=== PATIENT | female | born 1970 | race Caucasian/White ===

== ENCOUNTER → 2020-10-11 14:34 | Outpatient (CLI) | payer OTHER, SELFPAY ==
--- NOTE | ~2020-10-11 | MMUS_ITS ---
EXAMINATION: MM diagnostic hannah BI w annemarie, US breast BI limited HISTORY: Follow-up for probably benign bilateral breast masses, due six months ago TECHNIQUE: Craniocaudal, mediolateral, and mediolateral oblique 3-D tomosynthesis images of the lila ts were performed and synthetic 2-D images were generated. CAD analysis was submitted and interpreted . High resolution limited bilateral breast ultrasound was performed. COMPARISON: 09/17/2019, 09/01/2019, 09/21/2017, 01/13/2016 BREAST PARENCHYMAL COMPOSITION: There are scattered areas of fibroglandular density. FINDINGS: MAMMOGRAPHIC FINDINGS: Right breast: There are stable masses at the 2:00, 6:00, and 9:00 locations in the breast. There has been no suspicious interval change. No suspicious calcification or architectural distortion are ident ified. Left breast: There is a stable 8 mm mass in the middle third of the lower-outer breast at the 4:00 lo cation. A mammographically detected mass previously seen in the posterior third of the central breast has decreased in size since the comparison examination. ULTRASOUND: Right breast: There is a 6 mm x 3 mm oval, circumscribed, parallel, hypoechoic mass with no posterior features or internal vascularity at the 8:00 location 4 cm from the nipple. Left breast: There is a 6 mm x 3 mm oval, circumscribed, parallel, hypoechoic mass with no posterior features or internal vascularity at the 4:00 location 3 cm from the nipple. A 5 mm x 2 mm mass with s imilar sonographic features is seen at the 4:00 location 6 cm from the nipple. IMPRESSION: 1. Probably benign bilateral breast masses. 2. Recommend 6 month follow-up bilateral diagnostic mammogram and ultrasound. BI-RADS category 3, probably benign findings. Reviewed, dictated and finalized at location A. NSED SALES ASSISTANT IMPRESSION: 1. Probably benign bilateral breast masses. 2. Recommend 6 month follow-up bilateral diagnostic mammogram and ultrasound. BI-RADS category 3, probably benign findings.
== END ==
PROVIDERS: PCP Internal Medicine; Visit Provider Obstetrics & Gynecology
DX: R92.8 Other abnormal and inconclusive findings on diagnostic imaging of breast (principal)
CPT/HCPCS: 76642; 77062; 77066; G0279

== ENCOUNTER → 2021-05-05 14:37 | Outpatient (CLI) | payer OTHER, SELFPAY ==
--- NOTE | ~2021-05-05 | MMUS_ITS ---
EXAMINATION: MM diagnostic hannah BI w annemarie, US breast BI complete HISTORY: Six-month follow-up of probably benign bilateral breast masses TECHNIQUE: Full field and spot 3-D tomosynthesis images of both breasts were performed and synthetic 2-D images were generated. CAD analysis was submitted and interpreted. High resolution bilateral comp lete breast ultrasound was performed. COMPARISON: 10/11/2020 bilateral diagnostic digital mammogram and bilateral Limited breast ultrasound examination BREAST PARENCHYMAL COMPOSITION: There are scattered areas of fibroglandular density. FINDINGS: MAMMOGRAPHIC FINDINGS: No architectural distortion, malignant calcification, skin thickening or retra ction of either breast is evident. Bilateral small circumscribed breast masses are noted, including the following: Right breast: 6 mm circumscribed low-density opacity is noted posteriorly in the upper outer right breast (cranioca udal Tomosynthesis image 34/79; MLO Tomosynthesis image 27/82). 3.5 mm circumscribed opacity in the upper outer right breast (craniocaudal Tomosynthesis image 38/79) Two approximately 4.5 mm circumscribed lobular densities are noted in the upper central right breast (craniocaudal Tomosynthesis images 36 and 47/79; MLO Tomosynthesis image 42/82)). Approximately 5 mm-7 mm circumscribed lobular opacity in the lower outer right breast (craniocaudal T omosynthesis image 6/79; MLO Tomosynthesis image 16/74). Left breast: Probable small 3 mm circumscribed intramammary lymph node, posterior upper outer left breast (MLO Brando osynthesis image 7/74) Approximately 5.4 mm circumscribed opacity in the inner aspect of the lower outer left breast (cranio caudal Tomosynthesis image 5/72) ULTRASOUND: Right breast: 8:00 4 cm from nipple: 1.8 x 4.6 x 5.5 mm irregular hypoechoic lesion with anterior tentacle-like ext ension, internal vascularity and some posterior shadowing; biopsy is recommended. Left breast: 4:00 3 cm from nipple: Irregular hypoechoic 3.1 x 4.6 x 8 mm lesion without internal vascularity or p osterior shadowing. This measures approximately 3 x 5 x 7 mm on 10/11/2020. Irregular slightly larger in size since 10/11/2020. Targeted biopsy is recommended. IMPRESSION: 1. Suspicious sonographic abnormalities of each breast 2. Ultrasound-guided biopsy of right breast 8:00 lesion and left breast 4:00 lesion is recommended. BI-RADS category 4, suspicious findings. Reviewed, dictated and finalized at location A. IMPRESSION: 1. Suspicious sonographic abnormalities of each breast 2. Ultrasound-guided biopsy of right breast 8:00 lesion and left breast 4:00 le kayla is recommended. BI-RADS category 4, suspicious findings.
== END ==
PROVIDERS: PCP Internal Medicine; Visit Provider Obstetrics & Gynecology
DX: R92.8 Other abnormal and inconclusive findings on diagnostic imaging of breast (principal)
CPT/HCPCS: 76641; 77062; 77066; G0279

== ENCOUNTER 2022-10-22 01:38 | Day surgery (SDC) | payer OTHER, SELFPAY ==
[2022-10-09 16:38] VITALS: BMI 27.2
--- NOTE | 2022-10-20 11:31 | WPDANESEPPF ---
Anes - Initial Pre Proc Eval Procedure: Operation Date: 10/22/22 10:00 Proposed Procedures p Esophagogastroduodenoscopy & Screening Colonoscopy - Markel Zhu MD <Jaden Reyna MD - Last Filed: 10/24/22 17:20> Date/Time: 10/20/22 11:31 <Jaden Reyna MD - Last Filed: 10/24/22 17:20> Surgeon: Markel Zhu MD <Jaden Reyna MD - Last Filed: 10/24/22 17:20> Pre Op Diagnosis: neoplasm screening, GERD <Jaden Reyna MD - Last Filed: 10/24/22 17:20> Patient Data Age: 51 Gender: F Height: 1.7 m Weight: 79 kg <Jaden Reyna MD - Last Filed: 10/24/22 17:20> Allergies Allergy/AdvReac Type Severity Reaction Status Date / Time No Known Allergies Allergy Unknown Verified 10/22/22 09:02 <Jaden Reyna MD - Last Filed: 10/24/22 17:20> Home Medications Medication Instructions Recorded Confirmed Type albuterol sulfate 90 mcg/actuation 2 puff inhalation Q4-6H PRN 11/05/19 10/22/22 History aerosol inhaler (ProAir HFA) Shortness Of Breath Or Wheezing estradiol-norethindrone acet 0.5 1 tablet PO DAILY 05/11/20 10/22/22 History mg-0.1 mg tablet omeprazole 20 mg capsule,delayed 20 mg PO DAILY #90 caps 04/03/22 10/22/22 Rx release atorvastatin 20 mg tablet 20 mg PO QHS #90 tabs 08/07/22 10/22/22 Rx losartan 25 mg tablet 25 mg PO DAILY 10/09/22 10/22/22 History paroxetine HCl 20 mg tablet 20 mg PO DAILY 10/09/22 10/22/22 History varenicline 1 mg tablet (Chantix) 1 mg PO BID 10/09/22 10/22/22 History <Jaden Reyna MD - Last Filed: 10/24/22 17:20> Patient hx anesthesia problems: none <Kartik Graham DO - Last Filed: 10/22/22 09:12> Family hx anesthesia problems: none <Kartik Graham DO - Last Filed: 10/22/22 09:12> Results Review: All pre-operative results and documents have been reviewed as part of the pre-operative evaluation. <Jaden Reyna MD - Last Filed: 10/24/22 17:20> COUNTS INCLUDE 234 BEDS AT THE [facility] Past Medical History Medical History: Medical History Anxiety GERD (gastroesophageal reflux disease) Hemorrhoids HTN (hypertension) Hypertriglyceridemia Pulmonary emphysema Tobacco abuse <Jaden Reyna MD - Last Filed: 10/24/22 17:20> Family History Family History: Family History Mother Patient's mother is in good health Sibling Patient's brother is in good health Hepatitis C Father Patient's father is Grandparent Family history of Alzheimer's disease <Jaden Reyna MD - Last Filed: 10/24/22 17:20> Social History Social History: Social History (Updated 10/22/22 @ 09:12 by Kartik Graham DO) Smoking packs per day: 1 Smoking cigarettes per day: 20.0 Years smoked: 20 Smoking pack-years: 20.00 Smoking status: Current every day smoker Tobacco type: cigarettes Additional smoking assessment comments: CURRENTLY DOWN TO 0.5 PK/DAY ON CHANTIX Alcohol intake: current Alcohol use details: 3-5 drinks/day Substance use: never Substance use type: does not use Living arrangements: with family Spiritual care concerns: No <Jaden Reyna MD - Last Filed: 10/24/22 17:20> Anes - Eval Final PreProcedure Day of Procedure 10/20/22 11:31 <Jaden Reyna MD - Last Filed: 10/24/22 17:20> Patient weight: overweight <Jaden Reyna MD - Last Filed: 10/24/22 17:20> Heart: regular rate and rhythm <Jaden Reyna MD - Last Filed: 10/24/22 17:20> Lungs: clear to auscultation and normal air movement <Jaden Reyna MD - Last Filed: 10/24/22 17:20> Airway: Mallampati scale class II <Jaden Reyna MD - Last Filed: 10/24/22 17:20> Neurological: alert and oriented <Jaden Reyna MD - Last Filed: 10/24/22 17:20> Last oral intake: >/= 8 hours <Jaden Hernandez
[2022-10-22 09:00] VITALS: BP 156/99; PULSE 91; RESP 18; TEMP 35.8; O2SAT 100; BMI 26.2
[2022-10-22] MEDS: LACTATED RINGERS 1,000 ML 150 ML IV CONT (09:13)
--- NOTE | 2022-10-22 09:13 | PM.HPGS ---
History of Present Illness History of Present Illness Consent: Risks, benefits, and alternatives have been discussed and questions answered. Patient agrees to proceed with procedure. Chief complaint: neoplasm screening, GERD Narrative: Tashia Kay is a 51 year old female with symptomatic ged on omeprazole, never had colonoscopy Review of Systems Constitutional: Constitutional: Denies headache(s) and Denies weakness Eyes: Eyes: Denies blurry vision ENT: Reports Normal hearing present, Denies headache(s) and Denies neck pain Cardiovascular: Cardiovascular: Denies chest pain and Denies dyspnea Respiratory: Respiratory: Denies dyspnea Gastrointestinal: Gastrointestinal: Reports no additional gastrointestinal complaints Genitourinary: Genitourinary: Denies dysuria Musculoskeletal: Musculoskeletal: Denies neck pain Integumentary/Breasts: Skin/Breast: Denies dry skin Neurologic: Reports Normal hearing present, Denies headache(s) and Denies weakness Psychiatric: Psychiatric: Denies anxiety Endocrine: Endocrine: Denies change in body appearance Hematologic/Lymphatic: Hematologic/Lymphatic: Denies easy bleeding Allergic/Immunologic: Allergic/Immunologic: Denies urticaria PMFSH Past Medical History Medical History Anxiety GERD (gastroesophageal reflux disease) Hemorrhoids HTN (hypertension) Hypertriglyceridemia Pulmonary emphysema Tobacco abuse Family History Family History Mother Patient's mother is in good health Sibling Patient's brother is in good health Hepatitis C Father Patient's father is Grandparent Family history of Alzheimer's disease Social History Social History (Updated 10/22/22 @ 09:12 by Kartik Graham DO) Smoking packs per day: 1 Smoking cigarettes per day: 20.0 Years smoked: 20 Smoking pack-years: 20.00 Smoking status: Current every day smoker Tobacco type: cigarettes Additional smoking assessment comments: CURRENTLY DOWN TO 0.5 PK/DAY ON CHANTIX Alcohol intake: current Alcohol use details: 3-5 drinks/day Substance use: never Substance use type: does not use Living arrangements: with family Spiritual care concerns: No Meds Home Medications and Allergies Home Medications Medication Instructions Recorded Confirmed Type albuterol sulfate 90 mcg/actuation 2 puff inhalation Q4-6H PRN 11/05/19 10/22/22 History aerosol inhaler (ProAir HFA) Shortness Of Breath Or Wheezing estradiol-norethindrone acet 0.5 1 tablet PO DAILY 05/11/20 10/22/22 History mg-0.1 mg tablet omeprazole 20 mg capsule,delayed 20 mg PO DAILY #90 caps 04/03/22 10/22/22 Rx release atorvastatin 20 mg tablet 20 mg PO QHS #90 tabs 08/07/22 10/22/22 Rx losartan 25 mg tablet 25 mg PO DAILY 10/09/22 10/22/22 History paroxetine HCl 20 mg tablet 20 mg PO DAILY 10/09/22 10/22/22 History varenicline 1 mg tablet (Chantix) 1 mg PO BID 10/09/22 10/22/22 History Allergies Allergy/AdvReac Type Severity Reaction Status Date / Time No Known Allergies Allergy Unknown Verified 10/22/22 09:02 Vital Signs Vital Signs - 24 hr 10/22/22 09:00 Temperature 96.5 F L Pulse Rate 91 Respiratory Rate 18 Blood Pressure 156/99 H Pulse Oximetry 100 Oxygen Delivery Room Air Exam Const: General: comfortable and no acute distress HENMT: Face/Nose/Sinus: Normal nares present Eyes: General: appearance normal, both eyes and all related structures Neck: Neck: no JVD Resp: Auscultation: clear to auscultation bilaterally Cardio: Rate: regular rate Rhythm: regular rhythm GI: Inspection: non-distended GI Palp: Yes Soft to palpation Skin: General skin exam: normal color Neuro: General: gait normal Speech: normal speech Extrem: General: normal to inspection Psych: Mental Status: mental status grossly normal Assessment and P
--- NOTE | 2022-10-22 09:39 | SUR.OPER ---
EGD START: 919; END: 923. COLONOSCOPY START: 928; END: 937.
[2022-10-22 09:41] VITALS: BP 115/74; PULSE 84; RESP 22; O2SAT 99
[2022-10-22 09:51] VITALS: BP 129/89; PULSE 78; RESP 23; O2SAT 100
[2022-10-22 10:01] VITALS: BP 110/74; PULSE 72; RESP 22; O2SAT 100
== END 2022-10-22 10:10 | disposition home or self-care (01) ==
PROVIDERS: PCP Internal Medicine; Visit Provider Internal Medicine Gastroenterology
PROC: 0DJ08ZZ Inspection of Upper Intestinal Tract, Via Natural or Artificial Opening Endoscopic (ICD-10-PCS; CPT 43235; principal; 2022-10-22 10:00)
DX: Z12.11 Encounter for screening for malignant neoplasm of colon (principal); K63.5 Polyp of colon; K64.8 Other hemorrhoids; K29.70 Gastritis, unspecified, without bleeding; K21.9 Gastro-esophageal reflux disease without esophagitis; I10 Essential (primary) hypertension; E78.1 Pure hyperglyceridemia; J43.9 Emphysema, unspecified; F41.9 Anxiety disorder, unspecified; F17.210 Nicotine dependence, cigarettes, uncomplicated; Z79.51 Long term (current) use of inhaled steroids
CPT/HCPCS: 45385; 43239; 88305; J2704; J7120

== ENCOUNTER 2023-09-25 10:33 | Outpatient (CLI) | payer OTHER, SELFPAY ==
[2023-09-25 11:03] LABS: Basophils Absolute Auto 0.1 K/mm3 (0.0-0.1); Basophils Percent Auto 1.2 % (0.2-1.2); Eosinophils Absolute Auto 0.1 K/mm3 (0-0.3); Eosinophils Percent Auto 1.8 % (0-4.4); Hemoglobin 13.6 g/dL (12.0-15.0); Lymphocytes Absolute Auto 1.77 K/mm3 (0.9-3.2); Lymphocytes Percent Auto 35.5 % (18.3-44.2); Mean Corpuscular HGB Conc 33.2 g/dl (32-36); Mean Corpuscular Hemoglobin 37.2 pg (26-34); Mean Platelet Volume 10.4 fl (7.4-10.4); Monocytes Absolute Auto 0.5 K/mm3 (0.1-0.6); Monocytes Percent Auto 9.8 % (2.6-8.5); Neutrophils Absolute Auto 2.6 K/mm3 (1.3-6.7); Neutrophils Percent Auto 51.7 % (45.5-73.1); Platelet Count Result 235 k/mm3 (150-375); Red Blood Count 3.66 M/mm3 (4.2-5.4); Red Cell Distribution Width 14.3 % (11.5-14.5)
[2023-09-25 11:14] LABS: Alanine Aminotransferase 31 U/L (6-35); Alkaline Phosphatase 68 U/L (38-126); Anion Gap 5 mmol/L (8-16); Aspartate Amino Transferase 38 U/L (14-36); Bilirubin,Total 0.8 mg/dL (0.2-1.3); Blood Urea Nitrogen 11 mg/dL (7-17); Calcium 8.7 mg/dL (8.4-10.2); Carbon Dioxide 27 mmol/L (22-30); Chloride 105 mmol/L (98-107); Cholesterol 189 mg/dL (0-200); Estimated Glomerular Filt Rate > 60; Glucose 96 mg/dL (65-110); HDL Direct 92 mg/dL; Potassium 4.2 mmol/L (3.4-5.0); Sodium 137 mmol/L (137-145); Triglycerides 390 mg/dL (<150)
[2023-09-25 11:24] LABS: LDL Cholesterol Direct 63 mg/dL
[2023-09-25 11:38] LABS: Vitamin D 25 Hydroxy 38.9 ng/mL
== END 2023-09-25 10:34 | disposition home or self-care (01) ==
LOC: ANHLAB 10:34
PROVIDERS: PCP Internal Medicine; Visit Provider Clinical Nurse Specialist
DX: Z13.228 Encounter for screening for other metabolic disorders (principal); E78.1 Pure hyperglyceridemia; E55.9 Vitamin D deficiency, unspecified
CPT/HCPCS: 36415; 80053; 80061; 82306; 85025

== ENCOUNTER 2024-10-07 11:02 | Outpatient (CLI) | payer OTHER, SELFPAY ==
[2024-10-07 13:23] LABS: Add Urine Microscopic? YES; Appearance Urine Cloudy (Clear); Bacteria Urine 1+ /hpf; Bilirubin Urine Negative (Negative); Blood Urine Negative (Negative); Color Urine Yellow (Yellow); Glucose Urine UA Negative (Negative); Ketones Urine Negative (Negative); Leukocyte Esterase Ur Trace LEU/UL (Negative); Nitrate Urine Negative (Negative); Non Pathogenic Casts 0-2; Protein Urine Negative (Negative); RBC Urine 0-2 /hpf (0-2); Specific Grav Ur 1.018 (1.001-1.035); Squamous Epithelial Cell Urine Moderate /hpf (Few); pH Urine 7.5 (5.0-9.0)
[2024-10-07 13:39] LABS: Basophils Percent Auto 0.8 % (0.2-1.2); Eosinophils Absolute Auto 0.1 K/mm3 (0-0.3); Eosinophils Percent Auto 1.6 % (0-4.4); Hematocrit 36.7 % (37.0-47.0); Hemoglobin 12.6 g/dL (12.0-15.0); Immature Granulocyte Absolute 0.01 K/mm3 (0.00-0.031); Immature Granulocyte Percent A 0.2 % (0-0.5); Lymphocytes Absolute Auto 1.84 K/mm3 (0.9-3.2); Lymphocytes Percent Auto 37.9 % (18.3-44.2); Mean Corpuscular HGB Conc 34.3 g/dl (32-36); Mean Corpuscular Hemoglobin 40.3 pg (26-34); Mean Corpuscular Volume 117.3 fl (80-100); Monocytes Absolute Auto 0.5 K/mm3 (0.1-0.6); Monocytes Percent Auto 10.1 % (2.6-8.5); Neutrophils Absolute Auto 2.4 K/mm3 (1.3-6.7); Neutrophils Percent Auto 49.4 % (45.5-73.1); Platelet Count Result 222 k/mm3 (150-375); Red Blood Count 3.13 M/mm3 (4.2-5.4); Red Cell Distribution Width 15.6 % (11.5-14.5); White Blood Count 4.9 K/mm3 (4.5-10.0)
[2024-10-07 13:42] LABS: Alanine Aminotransferase 23 U/L (6-35); Albumin Level 4.5 g/dL (3.5-5.1); Alkaline Phosphatase 68 U/L (38-126); Anion Gap 7 mmol/L (4-12); Aspartate Amino Transferase 55 U/L (14-36); Bilirubin,Total 0.7 mg/dL (0.2-1.3); Blood Urea Nitrogen 11 mg/dL (7-17); Calcium 9.1 mg/dL (8.4-10.2); Carbon Dioxide 28 mmol/L (22-30); Chloride 102 mmol/L (98-107); Estimated Glomerular Filt Rate > 60; Glucose 96 mg/dL (65-110); Potassium 4.1 mmol/L (3.4-5.0); Sodium 137 mmol/L (137-145)
[2024-10-07 14:27] LABS: Macrocytosis 2+ (NORMAL); Platelet Estimate Adequate (Adequate); Schistocytes None Seen
[2024-10-07 15:10] LABS: Creatinine Urine 79.4 mg/dL
== END 2024-10-07 11:03 | disposition home or self-care (01) ==
LOC: ANHGOSHLAB 11:04
PROVIDERS: PCP Internal Medicine; Visit Provider Clinical Nurse Specialist
DX: I16.1 Hypertensive emergency (principal); R74.01 Elevation of levels of liver transaminase levels; F41.9 Anxiety disorder, unspecified; R30.0 Dysuria
CPT/HCPCS: 36415; 80053; 81001; 82043; 84443; 85025

== ENCOUNTER 2024-10-07 11:15 | Outpatient (CLI) | payer OTHER, SELFPAY ==
--- NOTE | ~2024-10-07 | XR_ITS ---
[id number] Ordering provider: HALIMA Sheth History: . M54.12 - Radiculopathy, cervical region . Comparison: None. FINDINGS: VERTEBRAL BODIES: Normal height and alignment. No visible fracture or subluxation. The dens is intact . DISK SPACES: Narrowing of the disc C5-C6 and C6-C7. Multilevel facet joint disease. Uncovertebral shruthi nt osteoarthritic changes at the level of C5-C6 and C6-C7. PARASPINOUS SOFT TISSUES: No prevertebral soft tissue swelling. IMPRESSION: No acute osseous abnormality cervical spine. Multilevel degenerative disc disease. Reviewed, dictated and finalized at location A. OWER DEVELOPMENT SPECIALIST
== END 2024-10-07 11:16 | disposition home or self-care (01) ==
LOC: GOSHIMG 11:16
PROVIDERS: PCP Internal Medicine; Visit Provider Clinical Nurse Specialist
DX: M51.369 Other intervertebral disc degeneration, lumbar region without mention of lumbar back pain or lower extremity pain (principal)
CPT/HCPCS: 72040

== ENCOUNTER 2025-02-26 15:17 | Outpatient (CLI) | payer OTHER, SELFPAY ==
--- NOTE | ~2025-02-26 | MR_ITS ---
EXAMINATION: MR cervical spine wo con DATE: 02/26/2025 15:43 INDICATION: Cervical radiculopathy TECHNIQUE: Magnetic resonance imaging (MRI) of the cervical spine was performed without intravenous c ontrast. Sequences included sagittal T2-weighted FSE, sagittal T2-weighted FS FSE, sagittal T1-weight ed FSE, axial MERGE and axial T2-weighted FSE. COMPARISON: 10/07/2024 FINDINGS: 2 mm retrolisthesis C5 on C6 and C6 on C7. Vertebral body heights are normal. Mild disc height loss at C5-C6 and moderate disc height loss with associated fibrovascular degenerative endplate changes at C6-C7. Remaining disc heights are normal. Cord signal intensity is normal. Visualized cervical soft tissues are unremarkable. The following disc levels are specifically discussed: C2-C3: The disc does not extend beyond the endplate margin. There is mild right uncovertebral joint o steoarthritis. There is mild bilateral facet joint osteoarthritis. There is no neural foraminal steno sis. There is no central canal stenosis. C3-C4: The disc does not extend beyond the endplate margin. There is mild left and moderate right unc overtebral joint osteoarthritis. There is severe bilateral facet joint osteoarthritis. There is mild right and minimal left neural foraminal stenosis. There is no central canal stenosis. C4-C5: The disc does not extend beyond the endplate margin. There is mild bilateral uncovertebral shruthi nt osteoarthritis. There is severe bilateral facet joint osteoarthritis. There is mild left neural fo raminal stenosis. There is no central canal stenosis. C5-C6: Disc is bulging. There is severe bilateral uncovertebral joint osteoarthritis. There is modera te bilateral facet joint osteoarthritis. There is mild left and moderate right neural foraminal steno sis. There is mild central canal stenosis. C6-C7: Disc is bulging. There is severe bilateral uncovertebral joint osteoarthritis. There is mild b ilateral facet joint osteoarthritis. There is moderate bilateral neural foraminal stenosis. There is mild central canal stenosis. C7-T1: The disc does not extend beyond the endplate margin. There is no uncovertebral joint osteoarth ritis. There is mild right and severe left facet joint osteoarthritis. There is mild left neural fora elizabeth stenosis. There is no central canal stenosis. IMPRESSION: 1. Mild to moderate lower cervical predominant spondylosis. Reviewed, dictated and finalized at location A.
== END 2025-02-26 15:18 | disposition home or self-care (01) ==
LOC: MICIMG 15:19
PROVIDERS: PCP Internal Medicine; Visit Provider Clinical Nurse Specialist
DX: J40 Bronchitis, not specified as acute or chronic (principal); M47.22 Other spondylosis with radiculopathy, cervical region
CPT/HCPCS: 72141

== ENCOUNTER 2025-07-29 08:13 | Outpatient (CLI) | payer OTHER, SELFPAY ==
--- NOTE | ~2025-07-29 | US_ITS ---
ULTRASOUND ABDOMEN LIMITED (RIGHT UPPER QUADRANT) Clinical History: R74.01 - Elevation of levels of liver transaminase levels Comparison: None Technique: Right upper quadrant sonography Findings: Liver: Normal size. Normal echotexture. No intrahepatic biliary ductal dilatation. Normal hepatopedal flow main portal vein. Common Duct: Normal caliber. 4 mm. Gallbladder: No stones. No wall thickening. No pericholecystic fluid. Pancreas: Largely obscured by bowel gas. Retrohepatic IVC: Unremarkable. IMPRESSION: 1. No acute findings. Reviewed, dictated and finalized at location R. IMPRESSION: 1. No acute findings.
== END 2025-07-29 08:14 | disposition home or self-care (01) ==
PROVIDERS: PCP Internal Medicine; Visit Provider Clinical Nurse Specialist
DX: R74.01 Elevation of levels of liver transaminase levels (principal)
CPT/HCPCS: 76705

== ENCOUNTER 2025-09-14 13:24 | Outpatient (CLI) | payer OTHER, SELFPAY ==
--- NOTE | 2025-09-14 14:45 | NEURO_ITS ---
IMPRESSION: # Complains of neck pain and numbness in arms and legs. Non- Diabetic. ? # Normal motor and sensory Nerve Conduction Study.of upper and lower extremities. ? # No Carpal Tunnel Syndrome or ulnar neuropathy. ? # Normal needle/EMG exam. ?Nerve Conduction Studies ?Stim Site NR Peak (ms) P-T Amp (?V) Site1 Site2 Delta-P (ms) Dist (cm) Immanuel (m/s) Left Median Anti Sensory (2-3nd Digit) Wrist ? 2.7 53.6 Wrist 2-3nd Digit 2.7 14.0 52 Wrist ? 2.7 67.9 Wrist 2-3nd Digit 2.7 14.0 52 Right Median Anti Sensory (2-3nd Digit) Wrist ? 2.8 52.6 Wrist 2-3nd Digit 2.8 14.0 50 Wrist ? 2.7 30.8 Wrist 2-3nd Digit 2.8 14.0 50 Left Radial Anti Sensory (Base 1st Digit) Wrist ? 1.7 41.1 Wrist Base 1st Digit 1.7 0.0 Right Radial Anti Sensory (Base 1st Digit) Wrist ? 2.2 35.1 Wrist Base 1st Digit 2.2 0.0 Left Sup Fibular Anti Sensory (Ant Lat Mall) 14 cm ? 2.8 28.4 14 cm Ant Lat Mall 2.8 16.0 57 Right Sup Fibular Anti Sensory (Ant Lat Mall) 14 cm ? 2.7 22.2 14 cm Ant Lat Mall 2.7 16.0 59 Left Sural Anti Sensory (Lat Mall) Calf ? 3.4 19.1 Calf Lat Mall 3.4 16.0 47 Right Sural Anti Sensory (Lat Mall) Calf ? 3.3 10.3 Calf Lat Mall 3.3 16.0 48 Left Ulnar Anti Sensory (5th Digit) Wrist ? 2.5 36.3 Wrist 5th Digit 2.5 14.0 56 Right Ulnar Anti Sensory (5th Digit) Wrist ? 2.5 59.6 Wrist 5th Digit 2.5 14.0 56 ?Stim Site NR Onset (ms) O-P Amp (mV) Site1 Site2 Delta-0 (ms) Dist (cm) Immanuel (m/s) Left Median Motor (Abd Poll Brev) Wrist ? 3.0 7.3 Elbow Wrist 4.7 28.0 60 Elbow ? 7.7 8.1 Right Median Motor (Abd Poll Brev) Wrist ? 2.8 3.4 Elbow Wrist 4.8 29.0 60 Elbow ? 7.6 6.3 Left Peroneal Motor (Vastus Med) Ankle ? 2.4 1.8 Popit Ankle 8.1 41.0 51 Popit ? 10.5 2.3 Right Peroneal Motor (Vastus Med) Ankle ? 3.4 2.3 Popit Ankle 7.5 38.0 51 Popit ? 10.9 2.3 Left Tibial Motor (Abd Javier Brev) Ankle ? 3.8 4.3 Knee Ankle 7.8 40.0 51 Knee ? 11.6 2.8 Right Tibial Motor (Abd Javier Brev) Ankle ? 3.8 6.5 Knee Ankle 7.8 40.0 51 Knee ? 11.6 8.0 Left Ulnar Motor (Abd Dig Minimi) Wrist ? 2.5 5.4 A Elbow Wrist 4.5 29.0 64 A Elbow ? 7.0 6.7 Right Ulnar Motor (Abd Dig Minimi) Wrist ? 2.7 7.7 A Elbow Wrist 5.0 30.0 60 A Elbow ? 7.7 7.1 F Wave Studies ?NR F-Lat (ms) L-R F-Lat (ms) Left Median (Mrkrs) (Abd Poll Brev) ? 25.96 0.55 Right Median (Mrkrs) (Abd Poll Brev) ? 26.51 0.55 Left Peroneal (Mrkrs) (EDB) ? 46.49 0.24 Right Peroneal (Mrkrs) (EDB) ? 46.25 0.24 Left Tibial (Mrkrs) (Abd Hallucis) ? 47.93 0.51 Right Tibial (Mrkrs) (Abd Hallucis) ? 47.43 0.51 Left Ulnar (Mrkrs) (Abd Dig Min) ? 27.03 0.31 Right Ulnar (Mrkrs) (Abd Dig Min) ? 27.34 0.31 Electromyography ?Side Muscle Nerve Root Ins Act Fibs Amp Dur Recrt Comment Right 1stDorInt Ulnar C8-T1 Nml Nml Nml Nml Nml Right Ext Indicis Radial (Post Int) C7-8 Nml Nml Nml Nml Nml Right Ext Digitorum Radial (Post Int) C7-8 Nml Nml Nml Nml Nml Right BrachioRad Radial C5-6 Nml Nml Nml Nml Nml Right PronatorTeres Median C6-7 Nml Nml Nml Nml Nml Right Abd Poll Brev Median C8-T1 Nml Nml Nml Nml Nml Right ABD Dig Min Ulnar C8-T1 Nml Nml Nml Nml Nml Right FlexPolLong Median (Ant Int) C7-8 Nml Nml Nml Nml Nml Right Abd Poll Long Radial (Post Int) C7-8 Nml Nml Nml Nml Nml Right AntTibialis Dp Br Fibular L4-5 Nml Nml Nml Nml Nml Right Gastroc Tibial S1-2 Nml Nml Nml Nml Nml Right Fibularis Long Sup Br Fibular L5-S1 Nml Nml Nml Nml Nml Right Flex Dig Long Tibial L5-S2 Nml Nml Nml Nml Nml Right Ext Dig Brev Dp Br Fibular L5, S1 Nml Nml Nml Nml Nml Right QuadratusFem QuadFemoris L4-5, S1 Nml Nml Nml Nml Nml Left AntTibialis Dp Br Fibular L4-5 Nml Nml Nml Nml Nml Left Gastroc Tibial S1-2 Nml Nml Nml Nml Nml Left Fibularis Long Sup Br Fibular L5-S1 Nml Nml Nml Nml Nml Left Flex Dig Long Tibial L5-S2 Nml Nml Nml Nml Nml Left Ext Dig Brev Dp Br Fibular L5, S1 Nml Nml Nml Nml Nml Left QuadratusFem QuadFemoris L4-5, S1 Nml Nml Nml Nml Nml Left 1stDorInt Ulnar C8-T1 Nml Nml Nml Nml Nml Left Ext Indicis Radial (Post Int) C7-8 Nml Nml Nml Nml Nml Left Ext Digitorum Radial (Post Int) C7-8 Nml Nml Nml Nml Nml Left BrachioRad Radial C5-6 Nml Nml Nml Nml Nml Left PronatorTeres Median C6-7 Nml Nml Nml Nml Nml Left Abd Poll Brev Median C8-T1 Nml Nml Nml Nml Nml Left ABD Dig Min Ulnar C8-T1 Nml Nml Nml Nml Nml Left FlexPolLong Median (Ant Int) C7-8 Nml Nml Nml Nml Nml Left Abd Poll Long Radial (Post Int) C7-8 Nml Nml Nml Nml Nml
--- OUTSIDE RECORDS SUMMARY | 2025-09-14 16:25 | XMS_ITS | Clinical Summary ---
Author Organization [facility] Address [address] [place] [address] Care Team Providers Care Pin Ticket Machine Operator Name Role Phone Aj Woods MD Unavailable [phone] Ruben Gilbert DO Primary Care Provider Allergies No known active allergies Medications atorvastatin (LIPITOR) 20 mg tablet Take 1 tablet (20 mg total) by mouth nightly at bedtime 2 Active estradiol-noret hindrone (ACTIVELLA) 0.5-0.1 mg per tablet Take 1 tablet by mouth daily 3 Active losartan (COZAAR) 25 mg tablet Take 1 tablet (25 mg total) by mouth daily 2 Active PARoxetine (PAXIL) 20 mg tablet Take 1 tablet (20 mg total) by mouth daily 2 Active hydroCHLOROthia zide (HYDRODIURIL) 25 mg tablet Take 1 tablet (25 mg total) by mouth daily Active cloNIDine (CATAPRES) 0.1 mg tablet TAKE 1 TABLET BY MOUTH ONCE DAILY NEEDED FOR SYSTOLIC BLOOD PRESSURE GREATER THAN 180 AND DIASTOLIC BLOOD PRESSURE GREATER THAN 110 4 Active colestipoL (COLESTID) 1 gram tablet Take 1 tablet (1 g total) by mouth 2 (two) times a day 5 Active omeprazole (PriLOSEC) 20 mg capsule Take 1 capsule (20 mg total) by mouth daily 5 Active cyclobenzaprine (FLEXERIL) 5 mg tablet TAKE 1 TABLET BY MOUTH THREE TIMES DAILY NEEDED FOR MUSCLE SPASM. DO NOT TAKE WHILE DRIVING. MAY CAUSE DROWSINESS 4 Active Active Problems Problem Noted Date Diagnosed Date Abnormal mammogram 05/22/2021 Immunizations Immunization Administration Dates Next Due Pfizer SARS-CoV-2 Monovalent Vaccination (12+ Yrs) PURPLE 03/14/2021,02/21/2021 Surgical History Surgery Date Site/Laterality Comments OTHER SURGICAL HISTORY Removal of tumor Medical History Medical History Date Comments Depression Hypertension Social History Tobacco Use Types Packs/Day Years Used Date Smoking Tobacco: Every Day Cigarettes 12 24 Tobacco Cessation:Ready to Q uit: Not Asked; Counseling Given: Not Answered AUDIT-C Answer Date Recorded Q1: How often do you have a drink containing alc ohol? Monthly or less 05/22/2021 Average Number of Drinks Not on file 021 Frequency of Binge Drinking Not on file 04/26 Comments Unknown Sex and Gender Information Value Date Recorded Sex Assigned at Not on file Legal Sex Female 1:37 AM SOCIAL MEDIA COMMUNITY MANAGER Gender Identity Not on file Sexual Orientation Not on file Obstetrics History Last Filed Vital Signs Vital Sign Reading Time Taken Comments Blood Pressure 135/88 01/14/2025 3:11 PM SOCIAL MEDIA COMMUNITY MANAGER Pulse 92 01/14/2025 3:11 PM SOCIAL MEDIA COMMUNITY MANAGER Temperature - - Respiratory Rate 18 01/14/2025 3:11 PM SOCIAL MEDIA COMMUNITY MANAGER Oxygen Saturation 98% 01/14/2025 3:11 PM SOCIAL MEDIA COMMUNITY MANAGER Inhaled Oxygen Concentration - - Weight 79.4 kg (175 lb) 01/14/2025 3:11 PM SOCIAL MEDIA COMMUNITY MANAGER Height 170.2 cm (5' 7) 01/14/2025 3:11 PM SOCIAL MEDIA COMMUNITY MANAGER Body Mass Index 27.41 01/14/2025 3:11 PM SOCIAL MEDIA COMMUNITY MANAGER Plan of Treatment Health Maintenance Due Date Last Done Comments Cervical Cancer Screening 1969 Colon Cancer Screening-Colonoscopy 1969 Depression Screening 1969 Hepatitis C Screening 1969 DTaP/Tdap/Td Vaccine (1 - Tdap) 1980 Hepatitis B Screening 1987 Regular Well Visit/Exam 18-64 1987 Pneumococcal vaccine <65 (1 of 2 - PCV) 1988 Lung Cancer Screening 2019 Zoster Vaccine (1 of 2) 2019 Covid-19 Vaccine (3 - 2024-2 6 season) 2025 03/14/2021, 02/21/2021 Influenza Vaccine (#1) 2025 Breast Cancer Screening-Mammogram 01/14/2026 01/14/2025, 01/09/2024, 12/31/2022, Additional history exists Procedures Procedure Name Priority Date/Time Associated Diagnosis Comments SCREENING MAMMOGRAM BILATERAL W [place] Schedule Routine, Read Routine (OP Routine) 01/14/2025 3:46 PM SOCIAL MEDIA COMMUNITY MANAGER Abnormal mammogram from Last 3 Months or Most Recently Relevant to Health Maintenance Results * Screening Mammogram Bilateral W [place] (01/14/2025 3:46 PM SOCIAL MEDIA COMMUNITY MANAGER) Anatomical Region Laterality Modality Breast Bilateral Mammography Narrative 01/17/2025 11:55 AM SOCIAL MEDIA COMMUNITY MANAGER Mammogram Technique: Bilateral Digital Breast Tomosynthesis, Bilateral C-view 2D Screening mammogram. Views obtained: bilateral craniocaudal and bilateral mediolateral oblique. Computer Aided Detection was performed. Mammogram Findings: The present examination has been compared to prior imaging studies performed at [facility] on 01/03/2022, 12/31/2022 and 01/09/2024. The breasts are almost entirely fatty. There is a new oval mass with circumscribed margins in the subareolar area of the left breast. There is no suspicious abnormality in the right breast. Impression: New mass in the left breast requires additional evaluation. Diagnostic mammogram and possible ultrasound of the left breast are recommended at this time. OVERALL FINAL ASSESSMENT: BI-RADS CATEGORY 0: Incomplete: Need additional imaging evaluation. Procedure Note Nory Ruggiero MD - 01/17/2025 Mammogram Technique: Bilateral Digital Breast Tomosynthesis, Bilateral C-view 2D Screening mammogram. Views obtained: bilateral craniocaudal and bilateral mediolateral oblique. Computer Aided Detection was performed. Mammogram Findings: The present examination has been compared to prior imaging studies performed at [facility] on 01/03/2022, 12/31/2022 and 01/09/2024. The breasts are almost entirely fatty. There is a new oval mass with circumscribed margins in the subareolararea of the left breast. There is no suspicious abnormality in the right breast. Impression: New mass in the left breast requires additional evaluation. Diagnostic mammogram and possible ultrasound of the left breast are recommended at this time. OVERALL FINAL ASSESSMENT: BI-RADS CATEGORY 0: Incomplete: Need additional imaging evaluation. Isis Patel [employer] POLICYHOLDER INFORMATION CLERK IMG MAMMO PROCEDURES Fi nal Result from Last 3 Months or Most Recently Relevant to Health Maintenance Insurance [facility] CHOICE PLUS [employer] OPEN ACCESS [facility] OPEN ACCESS Care Teams Pin Ticket Machine Operator Relationship Specialty Start Date End Date Ruben Gilbert DO [address] [place], [place] [id number] PCP - General Internal Medicine 05/09/21 Aj Woods MD [address] [place], [place] [id number] Referring Physician Obstetrics and Gynecology 05/09/21
== END 2025-09-14 13:25 | disposition home or self-care (01) ==
PROVIDERS: PCP Internal Medicine; Visit Provider Clinical Nurse Specialist
DX: R20.0 Anesthesia of skin (principal); R20.2 Paresthesia of skin; M54.2 Cervicalgia
CPT/HCPCS: 95886; 95913

== ENCOUNTER 2025-09-23 16:36 | Outpatient (CLI) | payer OTHER, SELFPAY ==
--- NOTE | ~2025-09-23 | XR_ITS ---
XR lumbar spine 2-3V Indication: R20.0 - Anesthesia of skin Comparison: None Findings: The vertebral heights are intact. No fracture or subluxation. The disc heights are intact. Soft tissues unremarkable Impression: No acute abnormality. Reviewed, dictated and finalized at location P. Impression: No acute abnormality.
== END 2025-09-23 16:37 | disposition home or self-care (01) ==
LOC: ANHIMG 16:38
PROVIDERS: PCP Internal Medicine; Visit Provider Clinical Nurse Specialist
DX: R20.0 Anesthesia of skin (principal); R20.2 Paresthesia of skin
CPT/HCPCS: 72100

== ENCOUNTER 2025-10-22 12:09 | Outpatient (CLI) | payer OTHER, SELFPAY ==
[2025-10-22 14:25] LABS: Toxigenic C. Diff NEGATIVE (NEGATIVE)
[2025-10-25 16:08] LABS: Pancreatic Elastase, Fecal >800 (>200)
[2025-10-26 14:08] LABS: Calprotectin, Fecal 77 ug/g (0-120)
== END 2025-10-22 12:10 | disposition home or self-care (01) ==
LOC: ANHLAB 12:10
PROVIDERS: PCP Internal Medicine; Visit Provider Nurse Practitioner
DX: K58.0 Irritable bowel syndrome with diarrhea (principal)
CPT/HCPCS: 82653; 83993; 87177; 87493; 87507